=== PATIENT | male | born 1970 | race Caucasian/White ===

== ENCOUNTER → 2016-10-13 | Outpatient (CLI) | payer BC, MEDICARE ==
[~2016-10-13] MED LIST: ALBUAER3 IN; BUPR100T14 PO; CARI-277 PO; ESCI10TA PO; LORA-655 PO; METO-159 PO; NOR10T PO; OMEP20CA5 PO; SIMV10TA84 PO
[2016-10-13 10:23] LABS: Urine Bilirubin Negative (Negative); Urine Blood Negative /uL (Negative); Urine Color Yellow (Yellow); Urine Glucose Normal (Normal); Urine Ketone Negative (Negative); Urine Nitrite Negative (Negative); Urine RBC 1 /hpf (0 - 3); Urine Urobilinogen Normal (Negative); Urine pH 5.5 (5.0-8.0)
[2016-10-13 10:33] LABS: Albumin 3.3 g/dL (3.4-5.0); BUN/Creatinine Ratio 13.3; Calcium 8.3 mg/dL (8.5-10.1); Potassium 3.8 mmol/L (3.5-5.1)
[2016-10-13 10:38] LABS: Partial Thromboplastin Time 28.6 sec (22.64-33.71); Prothrombin Time 10.3 sec (9.37-12.3)
[2016-10-13 10:41] LABS: Basophils # (auto) 0 uL; Basophils % (auto) 0.4 % (0.0-2.0); Eosinophils # (auto) 0.3 uL; Eosinophils % (auto) 2.8 % (0.0-7.0); Hematocrit 44.7 % (41.0-53.0); Hemoglobin 14.9 g/dL (13.5-17.5); Lymphocytes # (auto) 2.3 uL; Lymphocytes % (auto) 22.8 % (10.0-50.0); Mean Corpuscular Hemoglobin 28.7 pg (28.0-32.0); Mean Corpuscular Hgb Conc. 33.3 g/dL (32.0-36.0); Mean Corpuscular Volume 86.1 fL (80.0-100.0); Mean Platelet Volume 8.7 fL (7.4-10.4); Monocytes # (auto) 0.6 uL; Monocytes % (auto) 5.8 % (0.0-12.0); Neutrophils # (auto) 6.7 uL; Neutrophils % (auto) 68.2 % (37.0-80.0); Platelet Count (auto) 288 10^3/uL (140-450); Red Cell Distribution Width 14.1 % (11.6-16.0); White Blood Cell 9.9 10^3/uL (4.4-10.8)
[2016-10-13 10:42] LABS: Bilirubin, Total 0.4 mg/dL (0.2-1.0); Total Protein 6.9 g/dL (6.4-8.2)
== END | disposition home or self-care (01) ==
LOC: LAB 09:58
PROVIDERS: ATTEND Podiatrist Foot & Ankle Surgery
DX: Z00.00 Encounter for general adult medical examination without abnormal findings (principal)
CPT/HCPCS: 36415; 80053; 81001; 85025; 85610; 85730

== ENCOUNTER 2016-10-18 10:31 | Day surgery (SDC) | payer BC, MEDICARE ==
[~2016-10-18] VITALS: Ht 175.3 cm; Wt 117.9 kg
[~2016-10-18 10:31] MED LIST changes: -BUPR100T14 PO; -CARI-277 PO; -ESCI10TA PO; -LORA-655 PO; -SIMV10TA84 PO
[2016-10-18] MEDS ORDERED: CLINDAMYCIN 600MG IV 50 ML IV ONE (13:33)
[2016-10-18] MEDS ORDERED: BUPIVACAINE 0.75% INJ 10ML MPV SDV IJ ONE (13:42)
[2016-10-18] MEDS ORDERED: NEOMYCIN-BACITRACIN-POLYM 15GM TOP OINT TOP ONE (13:42)
[2016-10-18] MEDS ORDERED: PROPOFOL 10 MG/ML 20 ML IV ONE (14:24)
[2016-10-18] MEDS ORDERED: fentaNYL CITRATE 100 MCG/2 ML VL ONE (14:24)
[2016-10-18] MEDS ORDERED: MIDAZOLAM HCL 1MG/1ML-2 ML VIAL ONE (14:24)
[2016-10-18] MEDS ORDERED: BUPIVACAINE 0.75% INJ 30ML MPF VIAL IJ ONE (14:55)
[2016-10-18] MEDS ORDERED: ePHEDrine SULFATE 50 MG/ML AMP IV PRN (15:30)
[2016-10-18] MEDS ORDERED: hydrALAZINE HCL 20 MG/ML VL IV PRN (15:30)
[2016-10-18] MEDS ORDERED: ONDANSETRON HCL 4 MG/2 ML VIAL IV ONE (15:30)
[2016-10-18] MEDS ORDERED: HYDROmorphone HCL 2 MG/ML VL IV PRN (15:30)
[2016-10-18 16:15] VITALS: BP 129/78
== END 2016-10-18 16:15 | disposition home or self-care (01) ==
LOC: SUR 10:31
PROVIDERS: ATTEND Podiatrist Foot & Ankle Surgery
DX: M72.2 Plantar fascial fibromatosis (principal); J45.909 Unspecified asthma, uncomplicated; E66.9 Obesity, unspecified; F41.9 Anxiety disorder, unspecified
CPT/HCPCS: 28060; J2250; J2704; J3010; J3490; V2790

== ENCOUNTER 2017-10-08 12:30 | Emergency (ER) | payer OTHER, MEDICARE ==
[~2017-10-08] VITALS: Ht 175.3 cm; Wt 115.7 kg
[~2017-10-08 12:30] MED LIST changes: -OMEP20CA5 PO; +OMEP20CA74 PO
[2017-10-08 13:00] VITALS: BP 119/87
[2017-10-08] MEDS ORDERED: BACITRACIN TOP OINT 1 UD PKG TOP ONE (14:15)
[2017-10-08] MEDS ORDERED: LIDOCAINE 1% HCL (LOCAL ANESTH.) INJ 20ML MDV ID ONE (14:15)
[2017-10-08] MEDS ORDERED: TETANUS-DIPTH-ACEL PERTUSSIS 0.5ML SYRG IM ONE ×2 (15:05→15:15)
== END 2017-10-08 15:26 | disposition home or self-care (01) ==
LOC: ER 12:30
DX: S71.111A Laceration without foreign body, right thigh, initial encounter (principal); I10 Essential (primary) hypertension; K21.9 Gastro-esophageal reflux disease without esophagitis; Z88.0 Allergy status to penicillin; Z88.8 Allergy status to other drugs, medicaments and biological substances; Z91.018 Allergy to other foods; W22.8XXA Striking against or struck by other objects, initial encounter; Y93.89 Activity, other specified; Y99.8 Other external cause status; Y92.89 Other specified places as the place of occurrence of the external cause
CPT/HCPCS: 12002; 90471; 90715; 99283; J2001

== ENCOUNTER 2023-12-11 21:14 | Inpatient (IN) | payer MEDICARE, OTHER ==
[~2023-12-11] VITALS: Ht 175.3 cm; Wt 107.0 kg
[2023-12-11] MEDS: cloNIDine HCL 0.1 MG TAB PO ONE (22:03)
[2023-12-11 22:06] LABS: Urine Bacteria FEW /hpf (None Seen); Urine Blood 1+ /uL (Negative); Urine Clarity Clear (Clear); Urine Color Yellow (Yellow); Urine Mucus FEW (None Seen); Urine Protein, UAD 1+ (Negative); Urine Specific Gravity 1.028 (1.001-1.035); Urine Urobilinogen Normal (Negative); Urine WBC 5 /hpf (0 - 3); Urine pH 5.5 (5.0-9.0)
[2023-12-11 22:18] LABS: Basophils # (auto) 0.1 10 ^3/uL (0-0.2); Basophils % (auto) 0.5 % (0.0-2.0); Eosinophils # (auto) 0.3 10 ^3/uL (0-0.8); Eosinophils % (auto) 2.5 % (0.0-7.0); Hemoglobin 14.3 g/dL (13.5-17.5); Lymphocytes % (auto) 14.3 % (10.0-50.0); Mean Corpuscular Hemoglobin 28.7 pg (28.0-32.0); Mean Corpuscular Volume 84.4 fL (80.0-100.0); Monocytes % (auto) 7.5 % (0.0-12.0); Neutrophils # (auto) 10.4 10 ^3/uL (1.6-8.6); Neutrophils % (auto) 75.2 % (37.0-80.0); Nucleated Red Blood Cells % 0.1 %; Red Blood Cells 4.97 10^6/uL (4.5-5.90); Red Cell Distribution Width 14.8 % (11.8-14.3); White Blood Cell 13.8 10^3/uL (4.4-10.8)
[2023-12-11 22:37] LABS: Alanine Aminotransferase 24 U/L (7-40); Albumin 4.4 g/dL (3.2-4.8); Alkaline Phosphatase 119 U/L (46-116); Anion Gap 7 (5-15); Aspartate Aminotransferase 26 U/L (13-40); BUN/Creatinine Ratio 18.6 (10.0-20.0); Blood Urea Nitrogen 22 mg/dL (9-23); Calcium 9.9 mg/dL (8.7-10.4); Carbon Dioxide 28 mmol/L (20-30); Chloride 102 mmol/L (98-107); Glucose 121 mg/dL (74-106); Potassium 3.7 mmol/L (3.5-5.1); Sodium 137 mmol/L (136-145)
[2023-12-11 22:38] LABS: Bilirubin, Total 0.4 mg/dL (0.2-1.0); Total Protein 7.6 g/dL (5.7-8.2)
[2023-12-11] MEDS: ONDANSETRON ODT 4 MG TAB PO ONE (23:44)
[2023-12-11] MEDS ORDERED: MORPHINE SULFATE INJ 2 MG/ml SYRG IV PRN (23:45)
[2023-12-11] MEDS ORDERED: NITROGLYCERIN 0.4 MG SL TAB SL PRN (23:45)
[2023-12-11] MEDS ORDERED: ONDANSETRON HCL 4 MG/2 ML VIAL IV PRN (23:45)
[2023-12-11] MEDS: HYDROcodone-ACET 5/325MG TAB PO ONE (23:49)
[2023-12-12 01:00] VITALS: PULSE 84; RESP 14; O2SAT 94
[2023-12-12] MEDS: hydrALAZINE HCL 20 MG/ML VL IV PRN (01:08)
[2023-12-12 06:32] LABS: Basophils # (auto) 0 10 ^3/uL (0-0.2); Basophils % (auto) 0.3 % (0.0-2.0); Eosinophils # (auto) 0.3 10 ^3/uL (0-0.8); Eosinophils % (auto) 2.4 % (0.0-7.0); Hematocrit 40.5 % (41.0-53.0); Hemoglobin 13.5 g/dL (13.5-17.5); Lymphocytes # (auto) 1.9 10 ^3/uL (0.4-5.4); Lymphocytes % (auto) 15.8 % (10.0-50.0); Mean Corpuscular Hemoglobin 28.4 pg (28.0-32.0); Mean Corpuscular Hgb Conc. 33.3 g/dL (32.0-36.0); Mean Corpuscular Volume 85.5 fL (80.0-100.0); Monocytes # (auto) 1.1 10 ^3/uL (0-1.3); Monocytes % (auto) 9.4 % (0.0-12.0); Neutrophils # (auto) 8.7 10 ^3/uL (1.6-8.6); Neutrophils % (auto) 72.1 % (37.0-80.0); Nucleated Red Blood Cells % 0.1 %; Red Blood Cells 4.74 10^6/uL (4.5-5.90); Red Cell Distribution Width 14.8 % (11.8-14.3)
[2023-12-12 06:33] LABS: Anion Gap 6 (5-15); Calcium 9.5 mg/dL (8.7-10.4); Carbon Dioxide 29 mmol/L (20-30); Chloride 103 mmol/L (98-107); Potassium 3.9 mmol/L (3.5-5.1); Sodium 138 mmol/L (136-145)
[2023-12-12 06:39] LABS: BUN/Creatinine Ratio 17.6 (10.0-20.0); Blood Urea Nitrogen 18 mg/dL (9-23); Glucose 116 mg/dL (74-106)
[2023-12-12] MEDS ORDERED: HYDROcodone-ACET 5/325MG TAB PO PRN (07:15)
[2023-12-12 08:01] LABS: Amphetamine Screen, Urine Neg (NEGATIVE); Barbiturate Scree,Urine Neg (NEGATIVE); Benzodiazephine Screen, Urine Neg (NEGATIVE); Cannabinoid Screen, Urine Neg (NEGATIVE); Cocaine Screen, Urine Neg (NEGATIVE); Opiate Scree,Urine Neg (NEGATIVE); Phencyclidine Screen, Urine Neg (NEGATIVE)
[2023-12-12 08:25] VITALS: PULSE 90; RESP 20; O2SAT 97
[2023-12-12] MEDS ORDERED: ACETAMINOPHEN 325 MG TAB PO PRN ×2 (10:15)
[2023-12-12] MEDS: METOPROLOL SUCCINATE XL 50 MG TAB PO SCH (11:11)
[2023-12-12] MEDS: cefTRIAXone 1GM/50ML D5W 50 ML IV SCH (11:12)
[2023-12-12] MEDS: HYDROcodone-ACET 10/325MG TAB PO PRN (11:51)
[2023-12-12] MEDS ORDERED: hydrALAZINE HCL 20 MG/ML VL IV PRN (12:15)
[2023-12-12 12:35] LABS: Triglycerides 51 mg/dL (< 150)
[2023-12-12 12:36] LABS: LDL Cholesterol 92 mg/dL (< 100)
[2023-12-12 12:37] LABS: Cholesterol 144 mg/dL (< 200); HDL Cholesterol 49 mg/dL (40-59)
[2023-12-12 12:48] LABS: Rapid Influenza A Negative (Negative); Rapid Influenza B Negative (Negative)
[2023-12-12 12:49] LABS: COVID19 ANTIGEN SOFIA FIA NEGATIVE (NEGATIVE)
[2023-12-12 16:00] VITALS: BP 124/82; PULSE 84; RESP 96; TEMP 98.5; O2SAT 96
[2023-12-12 16:13] VITALS: BP 124/82; PULSE 80; PULSE 88; RESP 16; TEMP 98.3; O2SAT 96
[2023-12-12 20:00] VITALS: PULSE 93
[2023-12-12 21:00] VITALS: BP 159/90; PULSE 74; RESP 20; TEMP 99; O2SAT 96
[2023-12-12] MEDS: ATORVASTATIN 20 MG TAB PO SCH (21:29)
[2023-12-13 00:46] VITALS: BP 140/80; PULSE 82; RESP 20; TEMP 98; O2SAT 96
[2023-12-13 05:00] VITALS: BP 129/82; PULSE 84; RESP 18; TEMP 98.2
[2023-12-13] MEDS ORDERED: guaiFENesin-DM 100/10mg/5ml SYR PO PRN (05:30)
[2023-12-13 06:57] LABS: Basophils # (auto) 0 10 ^3/uL (0-0.2); Basophils % (auto) 0.2 % (0.0-2.0); Eosinophils # (auto) 0.3 10 ^3/uL (0-0.8); Eosinophils % (auto) 2.6 % (0.0-7.0); Hematocrit 40.5 % (41.0-53.0); Hemoglobin 13.3 g/dL (13.5-17.5); Lymphocytes # (auto) 1.8 10 ^3/uL (0.4-5.4); Lymphocytes % (auto) 16.3 % (10.0-50.0); Mean Corpuscular Hemoglobin 28.1 pg (28.0-32.0); Mean Corpuscular Hgb Conc. 32.9 g/dL (32.0-36.0); Mean Corpuscular Volume 85.4 fL (80.0-100.0); Monocytes % (auto) 9.1 % (0.0-12.0); Neutrophils # (auto) 8.1 10 ^3/uL (1.6-8.6); Neutrophils % (auto) 71.8 % (37.0-80.0); Red Blood Cells 4.74 10^6/uL (4.5-5.90); Red Cell Distribution Width 14.7 % (11.8-14.3); White Blood Cell 11.3 10^3/uL (4.4-10.8)
[2023-12-13 07:02] LABS: Calcium 9.4 mg/dL (8.7-10.4); Chloride 106 mmol/L (98-107); Potassium 3.8 mmol/L (3.5-5.1); Sodium 139 mmol/L (136-145)
[2023-12-13 07:03] LABS: Anion Gap 7 (5-15); Carbon Dioxide 26 mmol/L (20-30)
[2023-12-13 07:08] LABS: BUN/Creatinine Ratio 17.4 (10.0-20.0); Blood Urea Nitrogen 16 mg/dL (9-23); Glucose 106 mg/dL (74-106)
[2023-12-13] MEDS ORDERED: LISI20TA56 PO (07:48)
[2023-12-13] MEDS ORDERED: HYDR25TA5 PO (07:48)
[2023-12-13] MEDS ORDERED: CEPH500T PO (07:49)
[2023-12-13 08:00] VITALS: BP 145/88; PULSE 80; PULSE 81; RESP 20; TEMP 98.4; O2SAT 97
[2023-12-13 08:35] VITALS: BP 145/88; PULSE 80; RESP 20; TEMP 98.4; O2SAT 97
[2023-12-13] MEDS: LISINOPRIL 20 MG TAB PO SCH (10:02)
[2023-12-13] MEDS: hydroCHLOROthiazide 25 MG TAB PO SCH (10:02)
[2023-12-13 12:35] VITALS: BP 139/79; PULSE 77; RESP 16; TEMP 99.2; O2SAT 97
[2023-12-13 13:05] VITALS: BP 145/88; PULSE 80; RESP 20; TEMP 98.4; O2SAT 97
== END 2023-12-13 14:00 | disposition home or self-care (01) | DRG 281 ==
LOC: ER 21:14 → TELE 23:40 → TELE-WESTW 12-12 14:50
PROVIDERS: ADMIT Internal Medicine; ATTEND Internal Medicine
DX: I16.0 Hypertensive urgency (principal); N39.0 Urinary tract infection, site not specified; I21.A1 Myocardial infarction type 2; J45.909 Unspecified asthma, uncomplicated; J32.9 Chronic sinusitis, unspecified; E66.9 Obesity, unspecified; E78.5 Hyperlipidemia, unspecified; F41.9 Anxiety disorder, unspecified; F32.A Depression, unspecified; K21.9 Gastro-esophageal reflux disease without esophagitis; Z20.822 Contact with and (suspected) exposure to COVID-19; Z88.0 Allergy status to penicillin; Z91.018 Allergy to other foods; Z82.3 Family history of stroke; Q65.89 Other specified congenital deformities of hip; Z68.34 Body mass index [BMI] 34.0-34.9, adult
CPT/HCPCS: 36415; 70450; 80048; 80053; 80061; 80307; 81001; 83036; 83735; 84443; 84484; 85025; 87086; 87426; 87804; 93005; 93306; 96365; G0378